=== PATIENT | female | born 1970 | race African-American/Black ===

== ENCOUNTER → 2019-04-26 | Outpatient (CLI) | payer OTHER | LOC: RAD 01:20 | DX: Z12.31 Encounter for screening mammogram for malignant neoplasm of breast (principal) ==

== ENCOUNTER → 2019-05-04 | Outpatient (CLI) | payer OTHER | LOC: ULTRA 01:35 | DX: N60.01 Solitary cyst of right breast (principal) ==

== ENCOUNTER → 2021-09-15 | Outpatient (CLI) | payer OTHER | LOC: BC 10:30 → ULTRA 12:43 | PROVIDERS: ATTEND Family Medicine | DX: N63.21 Unspecified lump in the left breast, upper outer quadrant (principal); N60.02 Solitary cyst of left breast; R92.2 Inconclusive mammogram ==